=== PATIENT | female | born 1965 | race Caucasian/White ===

== ENCOUNTER 2019-03-25 21:22 | Emergency (ER) | payer BC, OTHER ==
[~2019-03-25] VITALS: Ht 152.4 cm; Wt 82.1 kg
--- NOTE | 2019-03-25 21:33 | NUR ---
pt here with " ". pt alert gcs 15. pt walked from w/r to er room w/o problems. pt c/o dizziness 1130 today. it went away. shortly after pt says son said " mouth down a little bit". approx 1999 tonoc says right side of mouth went up and pt c/o left sided weakness . pt said she had trouble speaking as well and said it wet away after 20- 30 seconds. currently pt denies pain. denies dyspnea and no acute sighns of dyspnea noted. denies chest and abd pain. denies n/v/d. lungs cta bilaterally. abd soft and no pain with palpation. 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 2140 [address] in room and doing neuro exam. tele applied by me shows sr 86. also said home bp was 209/102. done rick pt at 2140.
--- NOTE | 2019-03-25 21:51 | NUR ---
labs to lab by me
[2019-03-25 21:58] LABS: BASOPHILS % (AUTO) 0 % (0-10); EOSINOPHILS # (AUTO) 0.3 10^3/uL (0.0-0.3); EOSINOPHILS % (AUTO) 3 % (0-10); HEMATOCRIT 40 % (35-52); HEMOGLOBIN 13.1 G/DL (11.5-16.0); LYMPHOCYTES # (AUTO) 1.7 X 10^3 (1.0-4.0); LYMPHOCYTES % (AUTO) 18 % (12-44); MEAN CORPUSCULAR HEMOGLOBIN 29 PG (25-34); MEAN CORPUSCULAR HGB CONC 33 G/DL (32-36); MEAN CORPUSCULAR VOLUME 89 FL (80-99); MONOCYTES # (AUTO) 0.8 X 10^3 (0.0-1.0); MONOCYTES % (AUTO) 8 % (0-12); NEUTROPHILS # (AUTO) 6.7 X 10^3 (1.8-7.8); NEUTROPHILS % (AUTO) 71 % (42-75); PLATELET COUNT 352 10^3/uL (130-400); RED CELL DISTRIBUTION WIDTH 13.7 % (10.0-14.5); WHITE BLOOD COUNT 9.5 10^3/uL (4.3-11.0)
--- NOTE | 2019-03-25 22:05 | NUR ---
had to do glucometer controls first
--- NOTE | 2019-03-25 22:05 | NUR ---
blood sugar by me by glucometer is 146.
[2019-03-25 22:13] LABS: ALANINE AMINOTRANSFERASE 26 U/L (0-55); ALBUMIN 4.2 GM/DL (3.2-4.5); ALKALINE PHOSPHATASE 122 U/L (40-136); BILIRUBIN,TOTAL 0.2 MG/DL (0.1-1.0); BUN/CREATININE RATIO 15; CALCIUM 9.8 MG/DL (8.5-10.1); CARBON DIOXIDE 20 MMOL/L (21-32); CHLORIDE 107 MMOL/L (98-107); CREATININE SERUM 0.87 MG/DL (0.60-1.30); FIBRIN DEGRADATION PRODUCTS 0.7 UG/ML (0.00-0.49); GFR ESTIMATED > 60; GLUCOSE 136 MG/DL (70-105); POTASSIUM 4.1 MMOL/L (3.6-5.0); SODIUM 142 MMOL/L (135-145); TOTAL PROTEIN 7.7 GM/DL (6.4-8.2)
--- NOTE | 2019-03-25 22:24 | Diagnostic Imaging Report ---
PROCEDURE: CT head wo r/o stroke. TECHNIQUE: Multiple contiguous axial images were obtained through the brain without the use of intravenous contrast. Auto Exposure Controls were utilized during the CT exam to meet ALARA standards for radiation dose reduction. INDICATION: Weakness after working in the earlier today. COMPARISON: None FINDINGS: Examination degraded by motion. There is no midline shift or mass effect. The ventricles and sulci are unremarkable. No evidence for acute intracranial hemorrhage, abnormal extra-axial fluid collections or cerebral edema is present. The basilar cisterns are unremarkable. The bony calvarium is intact. The visualized paranasal sinuses and mastoid air cells are clear. IMPRESSION: Negative appearing noncontrast CT of the head. A preliminary report was provided by [facility]. Dictated by: Dictated on workstation # [id number]
--- NOTE | 2019-03-25 22:31 | Diagnostic Imaging Report ---
INDICATION: Weakness after working in the yard earlier tod. TECHNIQUE: Single view chest, 9:52 p.m. CORRELATION STUDY: None. FINDINGS: Elevated diaphragms with suboptimal inspiration resultants in atelectasis at the lung bases. Heart size is likely mildly enlarged without evidence for overt failure. IMPRESSION: Limited, suboptimal depth of inspiration. Cardiac enlargement without evidence for overt failure. Dictated by: Dictated on workstation # [id number]
--- NOTE | 2019-03-25 22:43 | ED Neurological Problem ---
General Chief Complaint: Neuro-Stroke Like Symptoms Stated Complaint: RT SIDE FACE SWOLLEN,LFT SIDE WEEKNESS Source: patient Exam Limitations: no limitations History of Present Illness Date Seen by Provider: Mar 25, 2019 Time Seen by Provider: 21:45 Initial Comments 53-year-old female who was brought to the emergency room by her for complaints of right sided facial droop and left-sided weakness that started around 11:30 AM today while eating lunch at [employer] [facility] lasting 30-40 seconds. She did go home and work out in her yard all afternoon in the heat. She has had complete resolution of symptoms but checked her blood pressure tonight and it was elevated. She denies any significant medical history including high blood pressure. She denies having a primary care provider. She is alert and oriented on arrival to the emergency room and her NIH stroke scale is 0 on arrival. Associated Symptoms: denies symptoms Allergies and Home Medications Allergies Coded Allergies: No Known Drug Allergies (Unverified , 03/25/19) Patient Home Medication List Home Medication List Reviewed: Yes Review of Systems Review of Systems Constitutional: see HPI; No chills, No fever Cardiovascular: see HPI, other (hypertension) Musculoskeletal: see HPI, muscle weakness (left-sided weakness-resolved) Psychiatric/Neurological: See HPI, Other (right-sided facial droop-resolved) All Other Systems Reviewed Negative Unless Noted: Yes Past Mmodptz-Vippmy-Sghqcw Hx Past Med/Social Hx: Reviewed Nursing Past Med/Soc Hx Patient Social History Recent Foreign Travel: No Contact w/Someone Who Travel: No Family Medical History Reviewed Nursing Family Hx Physical Exam Vital Signs Vital Signs - First Documented 03/25/19 21:33 Temp 97.8 Pulse 68 Resp 16 B/P (MAP) 205/109 (141) Pulse Ox 93 O2 Delivery Room Air Capillary Refill : Height, Weight, BMI Height: '" Weight: lbs. oz. kg; BMI Method: General Appearance: WD/WN, no apparent distress HEENT: PERRL/EOMI, normal ENT inspection, TMs normal, pharynx normal Neck: non-tender, full range of motion, supple, normal inspection Respiratory: chest non-tender, lungs clear, normal breath sounds, no respiratory distress, no accessory muscle use Cardiovascular: normal peripheral pulses, regular rate, rhythm, no edema, no gallop, no JVD, no murmur Gastrointestinal: normal bowel sounds, non tender, soft, no organomegaly, no pulsatile mass Back: normal inspection, no CVA tenderness, no vertebral tenderness Extremities: normal range of motion, non-tender, normal inspection, no pedal edema, no calf tenderness, normal capillary refill Neurologic/Psychiatric: alert, normal mood/affect, oriented x 3 Crainal Nerves: normal hearing, normal speech, PERRL Coordination/Gait: normal finger to nose, normal gait Motor/Sensory: no motor deficit, no sensory deficit, no pronator drift Skin: normal color, warm/dry Stroke Onset of Symptoms Date of Onset of Symptoms: Mar 25, 2019 Time of Symptom Onset: 11:30 NIH Stroke Scale Assessment Select: Initial 2144 Level of Consciousness: 0=Alert (0), Level of Consciousness-Questions: 0=Answers both month/age (0), LOC Commands: 0=Performs both tasks (0), Gaze: Normal (0), Visual [place]: 0=No visual loss (0), Facial Movement (Facial Paresis): 0=Normal symmetrical mnt (0), Motor Function-Arms Right: 0=No drift (0), Motor Function-Arms Left: 0=No drift (0), Motor Function-Legs Right: 0=No drift (0), Motor Function-Legs Left: 0=No drift (0), Limb Ataxia: 0=Absent (0), Sensory: 0=Normal:no loss (0), Best Language: 0=No aphasia (0), Dysarthria: 0=Normal (0), Extinction & Inattention: 0=No abnormality (0), Total: 0 Progress/Results/Core Measures Results/Orders Lab Results Laboratory Tests Test 03/25/19 21:48 03/25/19 22:04 Range/Units White Blood Count 9.5 4.3-11.0 10^3/uL Red Blood Count 4.46 4.35-5.85 10^6/uL Hemoglobin 13.1 11.5-16.0 G/DL Hematocrit 40 35-52 % Mean Corpuscular Volume 89 80-99 FL Mean Corpuscular Hemoglobin 29 25-34 PG Mean Corpuscular Hemoglobin Concent 33 32-36 G/DL Red Cell Distribution Width 13.7 10.0-14.5 % Platelet Count 352 130-400 10^3/uL Mean Platelet Volume 10.0 7.4-10.4 FL Neutrophils (%) (Auto) 71 42-75 % Lymphocytes (%) (Auto) 18 12-44 % Monocytes (%) (Auto) 8 0-12 % Eosinophils (%) (Auto) 3 0-10 % Basophils (%) (Auto) 0 0-10 % Neutrophils # (Auto) 6.7 1.8-7.8 X 10^3 Lymphocytes # (Auto) 1.7 1.0-4.0 X 10^3 Monocytes # (Auto) 0.8 0.0-1.0 X 10^3 Eosinophils # (Auto) 0.3 0.0-0.3 10^3/uL Basophils # (Auto) 0.0 0.0-0.1 10^3/uL Prothrombin Time 13.0 12.2-14.7 SEC INR Comment 1.0 0.8-1.4 Activated Partial Thromboplast Time 33 24-35 SEC D-Dimer 0.70 H 0.00-0.49 UG/ML Sodium Level 142 135-145 MMOL/L Potassium Level 4.1 3.6-5.0 MMOL/L Chloride Level 107 98-107 MMOL/L Carbon Dioxide Level 20 L 21-32 MMOL/L Anion Gap 15 H 5-14 MMOL/L Blood Urea Nitrogen 13 7-18 MG/DL Creatinine 0.87 0.60-1.30 MG/DL Estimat Glomerular Filtration Rate > 60 BUN/Creatinine Ratio 15 Glucose Level 136 H 70-105 MG/DL Calcium Level 9.8 8.5-10.1 MG/DL Corrected Calcium 9.6 8.5-10.1 MG/DL Total Bilirubin 0.2 0.1-1.0 MG/DL Aspartate Amino Transf (AST/SGOT) 21 5-34 U/L Alanine Aminotransferase (ALT/SGPT) 26 0-55 U/L Alkaline Phosphatase 122 40-136 U/L Troponin I < 0.028 <0.028 NG/ML Total Protein 7.7 6.4-8.2 GM/DL Albumin 4.2 3.2-4.5 GM/DL Glucometer 146 H 70-110 MG/DL My Orders Orders - WISAM FISHER Cbc With Automated Diff (03/25/19 21:44) Protime With Inr (03/25/19 21:44) Partial Thromboplastin Time (03/25/19 21:44) Comprehensive Metabolic Panel (03/25/19 21:44) Fibrin Degradation Products (03/25/19 21:44) Troponin I (03/25/19:44) Chest 1 View, Ap/Pa Only (03/25/19:44) Ekg Tracing (03/25/19:44) Accucheck Stat ONCE (03/25/19 21:44) Ed Iv/Invasive Line Start (03/25/19:44) Ed Iv/Invasive Line Start (03/25/19 21:44) Vital Signs Stroke Patient Q15M (03/25/19 21:44) Ct Head Wo-R/O Stroke (03/25/19:44) O2 (03/25/19:44) Intake & Output 06,14,22 (03/25/19:44) Monitor-Rhythm Ecg Trace Only (03/25/19:44) Dysphagia Screening Tool (03/25/19 21:44) Ct Angio Head/Neck (03/25/19 22:17) Iohexol Injection (Omnipaque 350 Mg/Ml 1 (03/25/19 23:15) Received Contrast (Hold Metformin- Contr (03/25/19 23:15) Ns (Ivpb) (Sodium Chloride 0.9% Ivpb Bag (03/25/19 23:15) Clopidogrel Tablet (Plavix Tablet) (03/26/19 00:00) Medications Given in ED Vital Signs/I&O 03/25/19 03/26/19 21:33 00:18 Temp 97.8 96.7 Pulse 68 76 Resp 16 20 B/P (MAP) 205/109 (141) 153/82 (105) Pulse Ox 93 98 O2 Delivery Room Air Room Air Progress Progress Note : Time: 23:49 Progress Note The case was discussed with Dr. Chiu at this time. She recommends giving the patient a dose of Plavix here and having her take a baby aspirin daily until f ollow-up with Dr. Calderon. The patient's blood pressure has returned to normotensive. She remains symptom-free at this time. The patient agrees with plan of care, plans for discharge, return precautions were given. Departure Impression Primary Impression: TIA (transient ischemic attack) Disposition: 01 HOME, SELF-CARE Condition: Stable/Unchanged Departure-Patient Inst. Decision time for Depature: 23:50 Referrals: NO,LOCAL PHYSICIAN (PCP) Primary Care Physician LUCA RUST DO Patient Instructions: Transient Ischemic Attack (DC) Add. Discharge Instructions: Call tomorrow morning to schedule an appointment with Dr. Calderon office to be seen within 1 week. Take a full strength 325 mg aspirin daily until you follow up with Dr. Calderon. Return back to the emergency room for worsening symptoms or concerns as needed. All discharge instructions reviewed with patient and/or family. Voiced understanding. WISAM FISHER Mar 25, 2019 22:43
[2019-03-25] MEDS ORDERED: HOLD METFORMIN - RECEIVED CONTRAST 20 ML VIAL IV SCH (23:15)
[2019-03-25] MEDS ORDERED: NS 100 ML (IVPB) BAG IV ONE (23:15)
[2019-03-25] MEDS ORDERED: IOHEXOL 350 MG/ML 100 ML (OMNIPAQUE 350) VIAL IV ONE (23:15)
--- NOTE | 2019-03-25 23:25 | NUR ---
tele shows sr 74.
--- NOTE | 2019-03-25 23:25 | NUR ---
4.pt remains alert gcs 15. remains in the room. pt denies h/a. denies chest and abd pain. denies dizziness and vision c/os. denies n/v/d. denies dyspnea and no acute sighns of dyspnea noted. neuro check by me is unremarkeable. pt been npo. bp machine is 150/70 ausc hr 76 reg ausc resp 20 normal recheck temp 98.0 p ox r/a is 95. tele shows sr 7
--- NOTE | 2019-03-25 23:31 | NUR ---
ekg by me
[2019-03-26] MEDS ORDERED: CLOPIDOGREL 75 MG (PLAVIX) TABLET PO ONE
[2019-03-26 00:18] VITALS: BP 153/82
--- NOTE | 2019-03-26 00:18 | NUR ---
d/c instructions to pt. told to read all papers. no scripts given. pt left ambulatory with . pt knows f/u. i went over the handtyped by information on the chart. iv d/cd by me prior to d/c. pt alert gcs 15 with no acute sighns of dyspnea noted at d/c. tele showed sr 75.
--- NOTE | 2019-03-26 03:34 | NUR ---
said earlier someone sent the ua already after i sent pt to bathroom for ua earlier
--- NOTE | 2019-03-26 07:13 | Diagnostic Imaging Report ---
PROCEDURE: CT angiography of the head and CT angiography of the neck with and without contrast. TECHNIQUE: Contiguous noncontrast images were obtained from the skull base through the vertex. After intravenous contrast administration, helical CT angiography of the neck was performed. Source data was reformatted into multiple MIP projections. Delayed post contrast acquisition was also obtained. Auto Exposure Controls were utilized during the CT exam to meet ALARA standards for radiation dose reduction. INDICATION: Stroke, weakness. COMPARISON: None FINDINGS: Visualized arch anatomy is unremarkable. The left vertebral artery is dominant. There is minimal atherosclerosis of the carotid bulbs. There is moderate tortuosity of the bilateral internal carotid arteries at the level of C1. There is no dissection or occlusion. There is no stenosis. The creek [place] is intact. There is no large vessel occlusion, aneurysm or AVM. The right vertebral artery ends in PICA. Venous structures are unremarkable. There is no abnormal enhancement or mass. IMPRESSION: 1. Mild atherosclerosis of the carotid bulbs without dissection, stenosis or occlusion. 2. Normal variant right vertebral artery ending in PICA. 3. No large vessel occlusion, aneurysm or AVM identified. Agree with preliminary report. Dictated by: Dictated on workstation # [id number]
== END 2019-03-26 00:18 | disposition home or self-care (01) ==
LOC: ER 21:25
DX: G45.9 Transient cerebral ischemic attack, unspecified (principal)
CPT/HCPCS: 36415; 70450; 70496; 70498; 71045; 80053; 82962; 84484; 85025; 85379; 85610; 85730; 93005; 93041